=== PATIENT | female | born 1980 | race Caucasian/White ===

== ENCOUNTER → 2021-01-11 | Outpatient (CLI) | payer BC ==
--- NOTE | 2021-01-11 14:47 | RAD ---
MG 2D BILAT SCREENING 01/11/2021 2:21 PM INDICATION: Asymptomatic screening mammogram. COMPARISON: None available TECHNIQUE: 2D CC and MLO projections were obtained of each breast. FINDINGS: Breast density: Category B: There are scattered areas of fibroglandular density. Right breast: There are no suspicious microcalcifications, masses or areas of architectural distortio n. Left breast: There are no suspicious microcalcifications, masses or areas of architectural distortion . IMPRESSION: Negative bilateral mammogram. BI-RADS category: 1; Negative Recommendations: Recommend annual screening mammography in one year. Electronically signed by: Ebony Crews MD (01/11/2021 2:44 PM) [id number]
== END ==
LOC: MAMMO 13:58
PROVIDERS: ATTEND Obstetrics & Gynecology
DX: Z12.31 Encounter for screening mammogram for malignant neoplasm of breast (principal)
CPT/HCPCS: 77067